=== PATIENT | female | born 1990 | race Caucasian/White ===

== ENCOUNTER 2019-03-07 13:38 | Emergency (ER) | payer OTHER ==
[~2019-03-07] VITALS: Ht 167.6 cm; Wt 75.2 kg
[2019-03-07] MEDS ORDERED: IBUP-1022 PO (13:45)
[2019-03-07] MEDS ORDERED: YAZ1TAB PO (13:46)
--- NOTE | 2019-03-07 14:23 | REP ---
RIGHT HAND, FOUR VIEWS: There is no evidence of an acute fracture, dislocation or intrinsic bone disease. IMPRESSION: No fracture or dislocation. Electronically Signed by Gerald Suggs MD 03/07/2019 04:59 P
[2019-03-07 16:43] VITALS: BP 119/66
[2019-03-07] MEDS ORDERED: KETO10TAB PO (16:55)
[2019-03-07] MEDS ORDERED: KETOROLAC 60 MG/2 ML VIAL (J1885) IM ONE (17:00)
== END 2019-03-07 16:59 | disposition home or self-care (01) ==
LOC: M ED 13:38
DX: S60.221A Contusion of right hand, initial encounter (principal); W22.8XXA Striking against or struck by other objects, initial encounter; Y92.89 Other specified places as the place of occurrence of the external cause
CPT/HCPCS: 73130; 96372; 99284; J1885

== ENCOUNTER 2021-01-10 10:29 | Emergency (ER) | payer OTHER ==
[~2021-01-10] VITALS: Ht 167.6 cm; Wt 78.8 kg
[~2021-01-10 10:29] MED LIST: IBUP-1022 PO; KETO10TAB PO; PRENTAB9 PO; UNIS25TA3 PO; YAZ1TAB PO
[2021-01-10] MEDS ORDERED: ACETAMINOPHEN 500 MG TAB PO ONE (11:40)
[2021-01-10 12:09] LABS: BASO % 0.2 % (0.0-1.0); HEMATOCRIT 40.7 % (36.0-47.0); HEMOGLOBIN 13.6 g/dl (12.0-15.5); LYMPH # 0.7 10^3/uL (1.5-5.0); LYMPH % 13.4 % (24.0-44.0); MEAN CORPUSCULAR HGB CONC 33.4 g/dl (32.0-36.5); MEAN CORPUSCULAR VOLUME 89.6 fl (80.0-96.0); MONO # 0.3 10^3/uL (0.0-0.8); NEUTROPHILS # 4.2 10^3/uL (1.5-8.5); PLATELET COUNT, AUTOMATED 135 10^3/uL (150-450); RED BLOOD COUNT 4.54 10^6/uL (4.00-5.40); WHITE BLOOD COUNT 5.3 10^3/uL (4.0-10.0)
[2021-01-10 12:46] LABS: ALBUMIN 3.5 GM/DL (3.2-5.2); ALT/SGPT 25 U/L (12-78); BILIRUBIN,DIRECT 0.1 MG/DL (0.0-0.2); BILIRUBIN,TOTAL 0.4 MG/DL (0.2-1.0); LIPASE 225 U/L (73-393)
--- NOTE | 2021-01-10 13:23 | REP ---
INDICATION: pelvic pain/discharge. COMPARISON: None. TECHNIQUE: Transabdominal and transvaginal scanning were performed. FINDINGS: Uterine dimensions are normal at 7.4 x 3.6 x 4.4 cm. Endometrial echo is 1.1 cm thick and centrally placed. No free fluid is seen in the cul-de-sac. Visualized bladder kelley are smooth. The uterus is retroverted. There is some free fluid in the cul-de-sac posteriorly adjacent the left adnexa. The right ovary has dimensions of 3.9 x 2.8 x 2.8 cm. It's Doppler flow is normal with a resistive index of 0.50. RO The left ovary dimensions are normal as well at 3.1 x 1.6 x 1.8 cm. It's Doppler flow was normal with resistive index of 0.61. Adjacent to the left ovary there is a cystic structure measuring 1.8 x 1.7 x 1.5 cm consistent with a small para ovarian cyst. Some cul-de-sac fluid surrounds this. IMPRESSION: Retroverted uterus. 1.8 cm left para ovarian cyst. A small amount of free fluid is seen in the cul-de-sac. Normal ovaries. <Electronically signed by Leroy Cueto > 01/10/21 [id number]
[2021-01-10 14:40] LABS: HEPATITIS B SURFACE ANTIBODY POSITIVE (POSITIVE)
[2021-01-10] MEDS ORDERED: ISOVUE-370 76% 100ML VIAL As Ordered ONE (14:49)
[2021-01-10 14:51] LABS: HEPATITIS B SURFACE ANTIGEN NEGATIVE (NEGATIVE)
[2021-01-10 15:19] LABS: HEPATITIS C VIRUS ABY INDEX 0.1 INDEX (<0.8)
[2021-01-10 15:20] LABS: HIV 1&2 SCREEN CENTAUR NEGATIVE (NEGATIVE)
--- NOTE | 2021-01-10 15:32 | REP ---
INDICATION: pelvic pain, vaginal discharge/ulceration. COMPARISON: None. TECHNIQUE: Axial contrast-enhanced images through the pelvis with coronal and sagittal reformations using 100 cc Isovue 370 intravenous contrast material. FINDINGS: Irregular rim enhancing right ovarian cyst with surrounding adjacent fluid and small amount of fluid extending into the posterior cul-de-sac most compatible with ruptured ovarian cyst and likely related to patient's pain. Heterogeneous retroverted uterus and left ovary demonstrate physiologic type changes and are otherwise normal. Visualized portions of the small and large bowel are unremarkable. Bladder is normal. Musculoskeletal structures demonstrate chronic L5 spondylolysis with grade 1 spondylolisthesis of approximately 2.5 mm. IMPRESSION: Findings compatible with ruptured right ovarian cyst likely related to patient's pain and symptoms. <Electronically signed by Ross Rojas > 01/10/21 [id number]
[2021-01-10 15:34] LABS: GC DNA AMPLIFICATION NEGATIVE (NEGATIVE)
[2021-01-10] MEDS ORDERED: metroNIDAZOLE (FLAGYL) 500MG TABLET PO ONE (16:10)
[2021-01-10] MEDS ORDERED: valACYclovir HCL 500 MG TAB PO ONE (16:10)
[2021-01-10] MEDS ORDERED: AZITHROMYCIN 250MG TABLET PO ONE (16:10)
[2021-01-10] MEDS ORDERED: DOXYCYCLINE HYCLATE 100MG TABLET PO ONE (16:10)
[2021-01-10 16:22] VITALS: BP 129/69
[2021-01-10] MEDS ORDERED: DOXY1CAP62 PO ×2 (16:34→16:46)
[2021-01-10] MEDS ORDERED: VALT1TAB PO ×2 (16:34→16:46)
[2021-01-10] MEDS ORDERED: FLAG500T PO ×2 (16:34→16:46)
[2021-01-10] MEDS ORDERED: ONDA4TAB6 PO (16:59)
[2021-01-10] MEDS ORDERED: ONDANSETRON 4MG/2ML VIAL IV ONE (17:00)
== END 2021-01-10 17:08 | disposition home or self-care (01) ==
LOC: M ED 10:29
DX: R93.5 Abnormal findings on diagnostic imaging of other abdominal regions, including retroperitoneum (principal); N89.8 Other specified noninflammatory disorders of vagina; N83.291 Other ovarian cyst, right side; N83.292 Other ovarian cyst, left side; N85.4 Malposition of uterus
CPT/HCPCS: 72193; 76830; 76856; 80047; 80076; 81001; 83690; 84702; 85025; 86706; 86780; 86803; 87070; 87077; 87086; 87205; 87210; 87252; 87340; 87389; 87661; 93976; 96374; 99284; J2405; Q9967